=== PATIENT | male | born 1975 | race Caucasian/White ===

== ENCOUNTER 2019-08-03 08:42 | Day surgery (SDC) | payer BC, OTHER ==
[~2019-08-03] VITALS: Ht 175.3 cm; Wt 93.3 kg
[~2019-08-03 08:42] MED LIST: BACITRACIN OINT 500U/GM, 15 GM ONE; EPINEPHRINE TOPICAL SOLN 1 MG/ML, 30ML ONE; LIDOCAINE 1%-EPI 1:100K, 20ML ONE
[2019-08-03] MEDS ORDERED: MIDAZOLAM 1 MG/ML, 2ML ONE (08:56)
[2019-08-03] MEDS ORDERED: FENTANYL PF 250 MCG/5ML ONE ×2 (08:57→11:59)
[2019-08-03] MEDS ORDERED: GLYCOPYRROLATE 0.2MG/1ML, 5ML ONE (08:59)
[2019-08-03] MEDS ORDERED: PROPOFOL 10 MG/ML, 20ML ONE (08:59)
[2019-08-03] MEDS ORDERED: NEOSTIGMINE 1 MG/ML, 10ML ONE (08:59)
[2019-08-03] MEDS ORDERED: ROCURONIUM 10MG/ML,5ML ONE (08:59)
[2019-08-03] MEDS ORDERED: ONDANSETRON 2MG/ML, 2ML ONE (08:59)
[2019-08-03] MEDS ORDERED: DEXAMETHASONE 4 MG/ML, 1ML ONE ×2 (08:59→11:37)
[2019-08-03] MEDS ORDERED: LACTATED RINGERS 1,000 ML IV SCH (09:18)
[2019-08-03] MEDS ORDERED: BUDE0.5A11 INH (09:20)
[2019-08-03 09:47] VITALS: BP 132/93
[2019-08-03] MEDS ORDERED: CEFAZOLIN 1,000 MG ONE (11:28)
[2019-08-03] MEDS ORDERED: hydrALAzine 20 MG/ML, 1ML ONE ×2 (11:28→12:16)
[2019-08-03] MEDS ORDERED: FENTANYL PF 100 MCG/2ML ONE (11:59)
[2019-08-03] MEDS ORDERED: METOPROLOL 1 MG/ML, 5ML ONE (12:00)
[2019-08-03] MEDS ORDERED: BACITRACIN 50,000 UNIT ONE (13:00)
[2019-08-03] MEDS ORDERED: BACITRACIN 50,000 UNIT IRRIG ONE (13:04)
[2019-08-03] MEDS ORDERED: hydrALAzine 20 MG/ML, 1ML IV PRN (14:00)
[2019-08-03] MEDS ORDERED: MEPERIDINE/PF 25MG/ML,1ML IVPush PRN (14:00)
[2019-08-03] MEDS ORDERED: LABETALOL 5MG/ML, 20ML IV PRN (14:00)
[2019-08-03] MEDS ORDERED: FENTANYL PF 100 MCG/2ML IV PRN (14:00)
[2019-08-03] MEDS ORDERED: MORPHINE SULFATE 4 MG/ML, 1ML IVPush PRN (14:00)
[2019-08-03] MEDS ORDERED: ONDANSETRON 2MG/ML, 2ML IV PRN (14:00)
[2019-08-03] MEDS ORDERED: OXYcodone 5 MG/5 ML ORAL.SOL UDC PO PRN (14:00)
[2019-08-03] MEDS ORDERED: HYDROmorphone 2 MG/ML, 1ML IVPush PRN (14:00)
== END 2019-08-03 17:18 | disposition home or self-care (01) ==
LOC: OUT 08:42
PROVIDERS: ATTEND Otolaryngology
DX: J32.0 Chronic maxillary sinusitis (principal); J32.2 Chronic ethmoidal sinusitis; J32.4 Chronic pansinusitis; J32.3 Chronic sphenoidal sinusitis; J33.8 Other polyp of sinus; J45.909 Unspecified asthma, uncomplicated; Z79.82 Long term (current) use of aspirin
CPT/HCPCS: 31259; 31267; 87070; 87075; 87205; 88304; J0360; J0690; J1100; J2250; J2405; J2704; J2710; J3010; J3490; J7120; 88305